=== PATIENT | female | born 1975 | race Caucasian/White ===

== ENCOUNTER 2016-09-07 20:31 | Emergency (ER) | payer SELFPAY ==
[2016-09-08 00:13] LABS: BASOPHIL % 0.4 % (0-2)
[2016-09-08 00:29] LABS: CALCIUM 8.1 mg/dL (8.5-10.1); CARBON DIOXIDE 26.4 mmol/L (21-32); CHLORIDE SERUM 105 mmol/L (98-107); CREATININE SERUM 0.7 mg/dL (0.6-1.0); GFR1 > 60 mL/min; GLUCOSE SERUM 120 mg/dL (74-106); POTASSIUM SERUM 3.1 mmol/L (3.5-5.1); SODIUM SERUM 137 mmol/L (136-145)
[2016-09-08 00:34] LABS: ALKALINE PHOSPHATASE 84 U/L (46-116); ALT/SGPT 76 U/L (14-59); AST/SGOT 35 U/L (15-37); BILIRUBIN TOTAL 0.7 mg/dL (0.20-1.00)
[2016-09-08 00:35] LABS: ALBUMIN 2.8 g/dL (3.4-5.0); RED CELL DISTRIBUTION WIDTH 15.2 % (11.5-14.5)
[2016-09-08 00:58] LABS: PLATELET COUNT 46 x10^3mcL (130-400)
[2016-09-08 01:08] LABS: UA SPECIFIC GRAVITY >=1.030 (1.005-1.035); microscopic required? YES; urine erythrocyte 2+ (NEGATIVE)
[2016-09-08 03:20] VITALS: BP 135/94
== END 2016-09-08 03:20 | disposition home or self-care (01) ==
LOC: ED 20:31
PROVIDERS: Emergency Medicine
DX: L02.415 Cutaneous abscess of right lower limb (principal); N39.0 Urinary tract infection, site not specified; N93.8 Other specified abnormal uterine and vaginal bleeding
CPT/HCPCS: 90715; J0696; J2001; J3490